=== PATIENT | female | born 1945 | race Caucasian/White ===

== ENCOUNTER 2018-07-17 17:36 | Emergency (ER) | payer MEDICARE, BC ==
[2018-07-17 17:46] VITALS: BP 153/75
--- NOTE | 2018-07-17 18:08 | UC ---
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---sling and ice applied refused further pain medication Pain Scale Used: 0-10 Numeric Location Of Pain: Is Discrete @ - left elbow Character: Aching, Throbbing Aggravating Factor(s): Movement Alleviating Factor(s): Rest, Ice, OTC Meds Associated Signs And Symptoms: Positive: Negative - Allergies/Home Medications Allergies/Adverse Reactions: Allergies Allergy/AdvReac Type Severity Reaction Status Date / Time ciprofloxacin [From Cipro] Allergy Unknown Verified 07/17/18 17:46 Reaction Details Penicillins Allergy Unknown Verified 07/17/18 17:46 Reaction Details Sulfa (Sulfonamide Allergy Unknown Verified 07/17/18 17:46 Antibiotics) Reaction Details Home Medications: Home Medications Ibuprofen TAB* [Motrin TAB* 600 MG] 600 mg PO ONCE PRN 07/17/18 [History Confirmed 07/17/18] Levothyroxine TAB* [Synthroid TAB*] 50 mcg PO DAILY 07/17/18 [History Confirmed 07/17/18] Sutton-3 Fatty Acids (Nf) [Fish Oil (NF)] 1 dose PO DAILY 07/17/18 [History Confirmed 07/17/18] PMH/Surg Hx/FS Hx/Imm Hx Previously Healthy: No Endocrine History: Hypothyroidism - Surgical History Surgical History: Yes Surgery Procedure, Year, and Place: RIGHT SHOULDER SURGERY FOR FX FEB 2016. right shoulder replacement. gallbladder - Family History Known Family History: Positive: None - Social History Occupation: Retired Lives: With Family Alcohol Use: Rare Substance Use Type: None Smoking Status (MU): Never Smoked Tobacco Review of Systems All Other Systems Reviewed And Are Negative: Yes Constitutional: Positive: Negative Skin: Positive: Negative Eyes: Positive: Negative ENT: Positive: Negative Respiratory: Positive: Negative Cardiovascular: Positive: Negative Gastrointestinal: Positive: Negative Genitourinary: Positive: Negative Motor: Positive: Decreased ROM - left elbow Neurovascular: Positive: Negative Musculoskeletal: Positive: Arthralgia - elbow Neurological: Positive: Negative Psychological: Positive: Negative Is Patient Immunocompromised?: No Physical Exam Triage Information Reviewed: Yes Appearance: Well-Appearing, Well-Nourished, Pain Distress Vital Signs: Initial Vital Signs Temp 98.4 F 07/17/18 17:41 Pulse 96 07/17/18 17:41 Resp 16 07/17/18 17:41 BP 153/75 07/17/18 17:41 Pulse Ox 97 07/17/18 17:41 Vital Signs Reviewed: Yes Eye Exam: Normal Eyes: Positive: Conjunctiva Clear ENT Exam: Normal ENT: Positive: Normal ENT inspection, Hearing grossly normal. Negative: Trismus , Muffled voice, Hoarse voice Dental Exam: Normal Neck exam: Normal Neck: Positive: Supple, Nontender Respiratory Exam: Normal Respiratory: Positive: Chest non-tender, No respiratory distress, No accessory muscle use Cardiovascular Exam: Normal Cardiovascular: Positive: RRR, Pulses Normal, Brisk Capillary Refill Musculoskeletal Exam: Other Musculoskeletal: Positive: No Edema, Strength Limited @ - left elbow, ROM Limited @ - left elbow, Other: - n/m/c intact distally Neurological Exam: Normal Psychological Exam: Normal Skin Exam: Normal Diagnostics - Radiology No standard instances Radiology Interpretation Completed By: ED Physician - surgical neck fracture left humerous Re-Evaluation - Re-Evaluation First Eval Change: Improved - sling applied n/m/c intact before and after sling applied--- getting pain relief with [place] Elbow Pain Course/Dx - Course Course Of Treatment: sling, rest, ice, pain control follow with orthopedic MD on Thursday - Differential Dx/Diagnosis Provider Diagnosis: Humeral surgical neck fracture Discharge - Sign-Out/Discharge Documenting (check all that apply): Patient Departure All imaging exams completed and their final reports reviewed: No - Discharge Plan Condition: Stable Disposition: HOME Prescriptions: Hydrocodone/Acetaminophen [Hydrocodone-Acetamin 5-325 mg] 1 each PO Q4HR #16 tablet MDD 6 Patient Education Materials: Ibuprofen (By mouth), Arm Fracture in Adults (ED) , R.I.C.E. Treatment (ED) Referrals: Altagracia Wilson MD [Medical Doctor] - 2 Days Addy Ford MD [Primary Care Provider] - - Billing Disposition and Condition Condition: STABLE Disposition: Home
[2018-07-17] MEDS ORDERED: HYDROcodone/ACETAMIN 5-325 MG* 1 TAB PO ONE ×2 (18:16→19:16)
== END 2018-07-17 19:33 | disposition home or self-care (01) ==
LOC: UCEAST 17:36
DX: S42.212A Unspecified displaced fracture of surgical neck of left humerus, initial encounter for closed fracture (principal); W07.XXXA Fall from chair, initial encounter; Y92.9 Unspecified place or not applicable; E03.9 Hypothyroidism, unspecified; Z88.0 Allergy status to penicillin; Z88.2 Allergy status to sulfonamides
CPT/HCPCS: 99213; G0463